=== PATIENT | male | born 1950 | race Caucasian/White ===

== ENCOUNTER 2016-11-06 20:11 | Inpatient (IN) | payer MEDICARE, MEDICAID ==
[~2016-11-06] VITALS: Ht 175.3 cm; Wt 67.6 kg
--- NOTE | 2016-11-06 20:20 | NUR ---
Pt reginald from facility for medical clearance prior to admission to [facility]. Pt alert, oriented and cooperative at this time. Pt excitedly but quietly talking to himself. Pt c/o r. shoulder pain, pt repositioned for comfort.
[2016-11-06] MEDS ORDERED: LORA1TAB PO (20:29)
[2016-11-06] MEDS ORDERED: ARTIFICAL TEARS OP/OT (20:29)
[2016-11-06] MEDS ORDERED: SEROQUEL (20:29)
[2016-11-06] MEDS ORDERED: MULT-213 PO (20:29)
[2016-11-06] MEDS ORDERED: ACET-2154 PO (20:29)
[2016-11-06] MEDS ORDERED: ZINC220C8 PO (20:29)
[2016-11-06] MEDS ORDERED: DIVA500T2 PO (20:29)
[2016-11-06] MEDS ORDERED: ASCO500C16 PO (20:29)
[2016-11-06] MEDS ORDERED: IBUP-1955 PO (20:29)
[2016-11-06] MEDS ORDERED: [UNRECOGNIZED DRUG - REMARK] (20:29)
[2016-11-06] MEDS ORDERED: DOCU-141 PO (20:29)
[2016-11-06 20:34] LABS: BASOPHILS # (AUTO) 0.1 K/uL (0.0-8.0); BASOPHILS % (AUTO) 0.8 % (0.0-2.0); EOSINOPHILS # (AUTO) 0.1 K/uL (0.0-0.7); EOSINOPHILS % (AUTO) 1.5 % (0.0-7.0); HEMATOCRIT 38.5 % (40-50); HEMOGLOBIN 12.3 G/DL (14.0-18.0); LYMPHOCYTES # (AUTO) 1.9 K/UL (0.8-4.8); LYMPHOCYTES % (AUTO) 23.1 % (20.5-51.5); MEAN CORPUSCULAR HEMOGLOBIN 27.7 UUG (27.0-31.0); MEAN CORPUSCULAR HGB CONC 32 g/dL (32.0-37.0); MEAN CORPUSCULAR VOLUME 86.8 FL (82.0-92.0); MONOCYTES # (AUTO) 0.9 K/UL (0.1-1.30); MONOCYTES % (AUTO) 10.8 % (0.0-11.0); NEUTROPHILS # (AUTO) 5.1 K/UL (1.8-8.9); NEUTROPHILS % (AUTO) 63.8 % (38.5-71.5); PLATELET COUNT (AUTO) 185 K/UL (150-450); RED BLOOD CELL COUNT(AUTO) 4.44 MIL/UL (4.7-6.1); WHITE BLOOD COUNT (AUTO) 8.1 K/UL (4.0-11.2)
[2016-11-06 20:39] LABS: CARBON DIOXIDE 30 mmol/L (21-32); CHLORIDE 106 mmol/L (98-107); CREATININE 0.7 mg/dL (0.6-1.3); GLUCOSE 101 mg/dL (74-106); POTASSIUM 4.1 mmol/L (3.5-5.1); UREA NITROGEN, BLOOD 19 mg/dL (7-18)
[2016-11-06 20:45] LABS: ALANINE AMINOTRANSFERASE 39 U/L (16-63); ALKALINE PHOSPHATASE 77 U/L (50-136); ASPARTATE AMINOTRANSFERASE 39 U/L (15-37); BILIRUBIN,DIRECT 0.1 mg/dL (0.0-0.2); BILIRUBIN,TOTAL 0.3 mg/dL (0.2-1.0); TOTAL PROTEIN, SERUM 7.2 g/dL (6.4-8.2); VALPROIC ACID 66 ug/mL (50-100)
[2016-11-06 20:52] LABS: ACETAMINOPHEN < 2.0 ug/mL (10-30)
[2016-11-06 20:53] LABS: ETHANOL < 3 MG/DL (0-0)
--- NOTE | 2016-11-06 21:37 | NUR ---
Pt medically cleared by Dr. De La Rosa for admission to [facility]
--- NOTE | 2016-11-06 22:30 | NUR ---
Pt remains calm and cooperative resting on his gurney. No obvious signs of distress at this time.
--- NOTE | 2016-11-06 23:20 | NUR ---
Report called to [facility]. Preparing to transfer pt to the floor
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
--- NOTE | 2016-11-07 06:19 | NUR ---
Pt still currently sleeping at this time, breathing unlabored. No acute distress noted. Will continue to monitor for safety.
[2016-11-07 07:39] VITALS: BP 103/55
--- NOTE | 2016-11-07 12:57 | NUR ---
Initial DC Plan: Pt arrived from [facility] [[address] [place] [address]]. FLOR spoke with registered nurse hh case manager MADISON at [facility] [ ] who stated pt will not be accepted back at the facility. MADISON stated they will help find the pt placement at one of their sister facilities. Pt is agreeable to going to another SNF upon discharge. FLOR will follow up with MD and patient regarding most appropriate discharge plans. SW will form a safe and proper discharge plan.
[2016-11-07 16:44] VITALS: BP 129/61
[2016-11-07 19:58] VITALS: BP 119/62
[2016-11-07 22:04] LABS: *BILIRUBIN,URIN NEGATIVE (NEGATIVE); *BLOOD, URINE NEGATIVE (NEGATIVE); *CLARITY,URINE CLEAR (CLEAR); *COLOR,URINE LIGHT YELLOW (YELLOW); *KETONES,URINE NEGATIVE (NEGATIVE); *PROTEIN,URINE NEGATIVE (NEGATIVE); *UROBILINOGEN,URINE 0.2 E.U./dl (NORMAL); LEUKOCYTE ESTERASE ,URINE NEGATIVE (NEGATIVE); NITRITE, URINE NEGATIVE (NEGATIVE); UGLUCOSE NEGATIVE (NEGATIVE)
[2016-11-07 22:22] LABS: WBC,URINE NONE SEEN /HPF (0-3)
--- NOTE | 2016-11-08 07:21 | NUR ---
Pt RESTLESS, ANXIOUS, (+)RTIS, INTERNALLY PREOCCUPIED. ATIVAN 1mg ADMINISTERED WITH GOOD EFFECT.
[2016-11-08 12:14] LABS: BILIRUBIN,TOTAL 0.3 mg/dL (0.2-1.0); CREATININE 0.7 mg/dL (0.6-1.3); MAGNESIUM 1.8 mg/dL (1.8-2.4); PHOSPHOROUS 4.3 mg/dL (2.5-4.9); POTASSIUM 4.4 mmol/L (3.5-5.1); TOTAL PROTEIN, SERUM 7.6 g/dL (6.4-8.2)
[2016-11-08 12:32] LABS: BASOPHILS # (AUTO) 0.1 K/uL (0.0-8.0); BASOPHILS % (AUTO) 1.2 % (0.0-2.0); EOSINOPHILS # (AUTO) 0.2 K/uL (0.0-0.7); EOSINOPHILS % (AUTO) 2.7 % (0.0-7.0); HEMATOCRIT 39.7 % (40-50); HEMOGLOBIN 13.2 G/DL (14.0-18.0); LYMPHOCYTES # (AUTO) 1.8 K/UL (0.8-4.8); LYMPHOCYTES % (AUTO) 26.1 % (20.5-51.5); MEAN CORPUSCULAR HEMOGLOBIN 29.1 UUG (27.0-31.0); MEAN CORPUSCULAR HGB CONC 33 g/dL (32.0-37.0); MEAN CORPUSCULAR VOLUME 87.7 FL (82.0-92.0); MONOCYTES # (AUTO) 0.7 K/UL (0.1-1.30); MONOCYTES % (AUTO) 10.1 % (0.0-11.0); NEUTROPHILS % (AUTO) 59.9 % (38.5-71.5); PLATELET COUNT (AUTO) 189 K/UL (150-450); RED BLOOD CELL COUNT(AUTO) 4.53 MIL/UL (4.7-6.1); WHITE BLOOD COUNT (AUTO) 6.8 K/UL (4.0-11.2)
[2016-11-08 12:46] LABS: THYROID STIMULATING HORMONE 2.136 mIU/mL (0.358-3.740)
--- NOTE | 2016-11-08 16:30 | NUR ---
COMPLAINED OF HEADACHE OFFERED HIM TYLENOL BUT REFUSED TO TAKE THEM ALSO REFUSED HIS HALDOL STATED DOES NOT TAKE HALDOL BUT ACCEPTED ATIVAN.
[2016-11-08 20:32] VITALS: BP 136/70
--- NOTE | 2016-11-08 22:00 | NUR ---
received to care, watching tv in the day room, isolative, but pleasant upon approach. c/o 8 pain to right shoulder. PRN tylenol was given at 1947, but later stated minimal relief. as of 2199, he appears to be asleep. no distress noted. will continue to monitor closely.
--- NOTE | 2016-11-09 02:17 | NUR ---
PRN norco given for right shoulder pain 12/05
--- NOTE | 2016-11-09 06:00 | NUR ---
slept 4.5 hours, total.
[2016-11-09 07:30] VITALS: BP 133/68
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
--- NOTE | 2016-11-09 15:08 | NUR ---
THE LONG TERM CARE PHARMACIST NOTIFIED THAT THE PATIENT IS UPSET ABOUT HIS AFFAIRS INCLUDING HIS SOCIAL SECURITY AND FOMER ADDRESS AND BANK CARDS STATED WILL TALK TO THE PATIENT.
--- NOTE | 2016-11-09 18:40 | NUR ---
PATIENT MEDICATED FOR C/O PAIN ON HIS RIGHT SHOULDER ORDERED AND WILL OBSERVE.
[2016-11-09 20:25] VITALS: BP 126/61
--- NOTE | 2016-11-09 22:00 | NUR ---
received to care, calm and pleasant, upon approach. compliant with medications, and staff direction. as of 2200, he remains awake, watching tv, with peers. no distress noted. will continue to monitor closely.
--- NOTE | 2016-11-09 22:20 | NUR ---
PRN restoril given, for insomnia.
--- NOTE | 2016-11-09 23:00 | NUR ---
appears to be asleep. no distress noted.
--- NOTE | 2016-11-10 06:00 | NUR ---
slept 7.0 hours, total
--- NOTE | 2016-11-10 06:07 | NUR ---
PRN norco given for lower back pain/right shoulder pain 09/04.
--- NOTE | 2016-11-10 07:20 | NUR ---
RECEIVED TO CARE, PT AWAKE AMBULATING IN HALLWAY TALKING TO SELF. PT MONITORED FOR SAFETY, ALL NEEDS MET.
[2016-11-10 07:30] VITALS: BP 138/63
--- NOTE | 2016-11-10 09:00 | NUR ---
PT IS HYPERVERBAL AMBULATING IN HALLWAY TALKING TO STAFF AND PEERS, MAKING DEMANDS TO STAFF. PT TOOK ALL AM MEDS WITH NO PROBLEM.
--- NOTE | 2016-11-10 11:02 | NUR ---
GAVE ATIVAN 0NE MG PO FOR AGITATION, PT DEMANDING THINGS, ARGUING WITH STAFF, WALKING UP AND DOWN HALLWAY AND HYPERVERBAL
--- NOTE | 2016-11-10 11:30 | NUR ---
PT IS CALM AND QUIET, AMBULATING IN HALLWAY, TALKING TO STAFF AND PEERS.
--- NOTE | 2016-11-10 13:32 | NUR ---
PT C/O RIGHT SHOULD PAIN GAVE NORCO PO PER PROTOCOL, ENC PT TO REST IN ROOM, PT SITTING IN CHAiIR, WERNER AND QUIET, WILL CONTINUE TO MONITOR.
[2016-11-10 16:00] VITALS: BP 124/60
[2016-11-10 20:00] VITALS: BP 117/60
--- NOTE | 2016-11-10 22:00 | NUR ---
received to care, calm, and pleasant upon approach. compliant with medications and staff direction. interacts minimally with peers. no distress noted. will continue to monitor closely.
--- NOTE | 2016-11-10 22:36 | NUR ---
PRN restoril given, for insomnia.
--- NOTE | 2016-11-10 22:48 | NUR ---
PRN norco was given at 2147, for right shoulder pain, 12/05. as of 2247, pt states good relief, 05/05, currently.
--- NOTE | 2016-11-10 23:00 | NUR ---
appears to be asleep. no distress noted.
--- NOTE | 2016-11-11 06:00 | NUR ---
slept 5.0 hours, total.
[2016-11-11 07:30] VITALS: BP 119/49
[2016-11-11 15:22] VITALS: BP 136/69
[2016-11-11 20:09] VITALS: BP 154/74
[2016-11-12 07:30] VITALS: BP 127/59
--- NOTE | 2016-11-12 07:30 | NUR ---
walking along hallway, keep on talking to himself. able to acknowledge other staff taking to him. redirected from talking and mumbling to self. assisted to tv room for breakfast.
--- NOTE | 2016-11-12 08:02 | NUR ---
PATIENT REFUSED LABS THIS AM
--- NOTE | 2016-11-12 08:16 | NUR ---
Patient slept 5.0 hours this shift. Pacing in hallway intermittently, assuming role of Staff, attempting to intervene with patient care. Redirected with consideration. Behaviors decreased, but continued throughout the shift..
--- NOTE | 2016-11-12 09:00 | NUR ---
took meds without incident
--- NOTE | 2016-11-12 10:46 | NUR ---
patient refusing blood drawn for valproic acid, CBC, CMP, MAG and PHOS. in spite of the explanations. GENERAL OFFICE WORKERMark and Dr. Tam notified about it.
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
--- NOTE | 2016-11-12 14:19 | NUR ---
feeling much better , calmer after ativan use.
[2016-11-12 15:31] VITALS: BP 136/62
[2016-11-12 15:56] LABS: BILIRUBIN,TOTAL 0.2 mg/dL (0.2-1.0); CREATININE 0.8 mg/dL (0.6-1.3); MAGNESIUM 1.7 mg/dL (1.8-2.4); PHOSPHOROUS 4.4 mg/dL (2.5-4.9); POTASSIUM 4.3 mmol/L (3.5-5.1); TOTAL PROTEIN, SERUM 7.6 g/dL (6.4-8.2)
--- NOTE | 2016-11-12 17:55 | NUR ---
glad when bible was found. commented of need to be non judgmental and rushing to conclusion and patient. agreed with the discussion
[2016-11-12 19:12] LABS: BASOPHILS % (AUTO) 0.5 % (0.0-2.0); HEMATOCRIT 41.8 % (40-50); LYMPHOCYTES % (AUTO) 26.3 % (20.5-51.5); MEAN CORPUSCULAR HEMOGLOBIN 28.4 UUG (27.0-31.0); MEAN CORPUSCULAR HGB CONC 32 g/dL (32.0-37.0); MONOCYTES % (AUTO) 12.2 % (0.0-11.0); NEUTROPHILS # (AUTO) 4.6 K/UL (1.8-8.9); PLATELET COUNT (AUTO) 203 K/UL (150-450)
[2016-11-12 19:13] LABS: EOSINOPHILS # (AUTO) 0.2 K/uL (0.0-0.7); MONOCYTES # (AUTO) 0.9 K/UL (0.1-1.30)
[2016-11-12 19:15] LABS: RED BLOOD CELL COUNT(AUTO) 4.75 MIL/UL (4.7-6.1); WHITE BLOOD COUNT (AUTO) 7.8 K/UL (4.0-11.2)
[2016-11-12 19:16] LABS: HEMOGLOBIN 13.5 G/DL (14.0-18.0)
[2016-11-12 20:24] VITALS: BP 110/58
--- NOTE | 2016-11-13 06:48 | NUR ---
SLEPT 6.5 HOURS. PACING THE HALLWAY AT THIS TIME, REFUSED PRN. IN NO ACUTE DISTRESS AT THIS TIME.
[2016-11-13 07:30] VITALS: BP 141/77
--- NOTE | 2016-11-13 08:39 | NUR ---
Discharge Planning Note: FLOR received a voicemail from Jennifer at [facility] [[phone]] stating they can accept pt. FLOR called [facility] to confirm, however there was no answer and no voicemail box.
--- NOTE | 2016-11-13 14:00 | NUR ---
Patient visible around unit, pacing back and forth the hallways, hyperverbal, labile mood, easily irritable, ate 100% breakfast and lunch. Patient was selective with his medications, refused haldol. Denies suicidal/homicidal ideations. Patient spend time in the dayroom watching tv with peers. Will continue to monitor for safety and behavioral changes.
[2016-11-13 17:01] VITALS: BP 137/61
[2016-11-13 20:07] VITALS: BP 126/76
--- NOTE | 2016-11-13 22:00 | NUR ---
received to care, calm, and pleasant upon approach. compliant with medications and staff direction. interacts minimally with peers. as of 0, he appears to be asleep. no distress noted. will continue to monitor closely.
--- NOTE | 2016-11-14 06:00 | NUR ---
slept 6.0 hours, total
[2016-11-14 08:01] VITALS: BP 116/67
--- NOTE | 2016-11-14 08:41 | NUR ---
Discharge Planning Note: FLOR spoke with Jennifer at [facility] [[phone]] who stated they can accept pt.
[2016-11-14 16:31] VITALS: BP 134/66
[2016-11-14 20:22] VITALS: BP 118/58
--- NOTE | 2016-11-15 06:28 | NUR ---
Pt slept 6 hrs through the night. Had a shower last night.
[2016-11-15 16:00] VITALS: BP 118/57
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
[2016-11-15 20:36] VITALS: BP 105/52
--- NOTE | 2016-11-15 22:00 | NUR ---
Patient refused Haldol 10mg PO QHS. he stated that "Haldol make me sick and weak." he was noted irritable and argumentative. Refused to answer any questions. we will continue to monitor.
--- NOTE | 2016-11-16 06:22 | NUR ---
Patient slept 7.30 hrs through the night.
[2016-11-16 07:30] VITALS: BP 102/54
[2016-11-16 15:00] VITALS: BP 126/61
[2016-11-16 20:32] VITALS: BP 114/58
--- NOTE | 2016-11-16 22:00 | NUR ---
received to care, calm and pleasant, upon approach. compliant with medications, and staff direction. remains isolative, and non interactive, with peers, but able to make his needs known, to staff. STEFANIA carty was given at 2024, for right shoulder pain, 12/05. as of 2199, he appears to be asleep. no distress noted. will continue to monitor closely.
--- NOTE | 2016-11-17 06:00 | NUR ---
slept 7.0 hours, total. is now awake, pacing the hallway, talking to self. remains labile, and easily agitated. states that "people" are harassing him, even though nobody has engaged him. refused AM shower, and PRN for anxiety. currently in day room, watching tv. will continue to monitor closely.
[2016-11-17 07:30] VITALS: BP 161/79
--- NOTE | 2016-11-17 12:47 | NUR ---
Discharge Plan: Patient will be discharged to [facility] [[address] [place] [address]. [address], [place] [address]; ] via ambulance at 3pm. SW spoke with Jennifre at [facility] to confirm discharge plans. Patient is aware and agreeable to discharge plans. Patient will follow up with Dr. Stafford [Thread Separator] and Dr. Crews [Psychiatrist].
--- NOTE | 2016-11-17 15:38 | NUR ---
1300 cALLED [facility]. SPOKE TO MS. Kathie PETERSEN LVN WHO WILL ADMIT THE PATIENT; REPORT GIVEN REGARDING PATIENT DX., MEDICATIONS TO CONTINUE UPON HOSPITAL DISCHARGED, NURSE VERBALIZED UNDERSTANDING. 1525 PATIENT PICKED UP BY AMBULANCE AND DISCHARGED TO [facility] . PATIENT ALERT AND OX3. DENIES SI/HI. NO HALLUCINATIONS/ NO DELUSION NOTED.
== END 2016-11-17 15:25 | DRG 885 ==
LOC: ER 20:14 → GPS 23:20
PROVIDERS: ADMIT Psychiatry & Neurology Psychiatry; ATTEND Internal Medicine
DX: F25.0 Schizoaffective disorder, bipolar type (principal); J44.9 Chronic obstructive pulmonary disease, unspecified; E83.42 Hypomagnesemia; F23 Brief psychotic disorder; G89.4 Chronic pain syndrome; D64.9 Anemia, unspecified; F17.210 Nicotine dependence, cigarettes, uncomplicated; R74.0 Nonspecific elevation of levels of transaminase and lactic acid dehydrogenase [LDH]; F32.9 Major depressive disorder, single episode, unspecified; F41.9 Anxiety disorder, unspecified; Z79.899 Other long term (current) drug therapy
CPT/HCPCS: 36415; 71010; 80164; 83735; 84100; 84443; 85025; 85730; 87086; 93005; A4663; G0480; G0480-TC; J3490